=== PATIENT | male | born 1960 | race Caucasian/White ===

== ENCOUNTER 2016-11-11 15:46 | Outpatient (CLI) | payer OTHER | END 2016-11-11 15:47 | disposition home or self-care (01) | DX: G47.33 Obstructive sleep apnea (adult) (pediatric) (principal); I10 Essential (primary) hypertension ==

== ENCOUNTER 2016-12-31 15:43 | Outpatient (CLI) | payer OTHER | END 2016-12-31 15:44 | disposition home or self-care (01) | DX: G47.33 Obstructive sleep apnea (adult) (pediatric) (principal) ==